=== PATIENT | female | born 1985 | race Caucasian/White ===

== ENCOUNTER 2017-07-21 17:54 | Emergency (ER) | payer MEDICAID, OTHER, SELFPAY ==
[~2017-07-21] VITALS: Ht 154.9 cm; Wt 47.4 kg
[2017-07-21] MEDS ORDERED: DIPH,PERTUSS(ACELL),TET VAC/PF 0.5 ML IM-VACC ONE ×2 (18:23→18:30)
[2017-07-21] MEDS ORDERED: LIDOCAINE 2%, 20ML SQ ONE (18:30)
[2017-07-21] MEDS ORDERED: LIDOCAINE-MPF 1%, 5ML ONE ×2 (18:30→19:09)
[2017-07-21 18:39] LABS: BASOPHILS # (AUTO) 0.07 x10^3/uL (0-0.1); BASOPHILS % (AUTO) 1 % (0-1); EOSINOPHILS # (AUTO) 0.25 x10^3/uL (0-0.4); EOSINOPHILS % (AUTO) 2 % (1-7); LYMPHOCYTES # (AUTO) 2.63 x10^3/uL (1-3.4); LYMPHOCYTES % (AUTO) 20 % (22-44); MD NO; MEAN CORPUSCULAR HEMOGLOBIN 30.8 pg (27.0-34.8); MEAN CORPUSCULAR HGB CONC 33.7 g/dL (32.4-35.8); MEAN CORPUSCULAR VOLUME 91.4 fL (80-100); MEAN PLATELET VOLUME 8.4 fL (7.4-10.4); MONOCYTES # (AUTO) 0.72 x10^3/uL (0.2-0.8); MONOCYTES % (AUTO) 5 % (2-9); NEUTROPHILS # (AUTO) 9.84 x10^3/uL (1.8-6.8); NEUTROPHILS % (AUTO) 73 % (42-75); PLATELET COUNT 303 x10^3/uL (130-400); RED BLOOD COUNT 4.45 x10^6/uL (3.82-5.3); RED CELL DISTRIBUTION WIDTH 12.1 % (9.6-15.2)
[2017-07-21 18:47] LABS: ALBUMIN 3.3 g/dL (3.4-5.0); ANION GAP 11 mmol/L (5-15); CALCIUM 8.6 mg/dL (8.5-10.1); CHLORIDE 110 mmol/L (98-107); CREATININE 0.74 mg/dL (0.55-1.02)
[2017-07-21] MEDS ORDERED: LORazepam 2 MG/ML, 1ML ONE (18:58)
[2017-07-21] MEDS ORDERED: LORazepam 2 MG/ML, 1ML IM ONE (19:00)
[2017-07-21 19:46] VITALS: BP 112/84
== END 2017-07-21 19:49 | disposition home or self-care (01) ==
LOC: ED 19:30
DX: L03.011 Cellulitis of right finger (principal)
CPT/HCPCS: 10060; 36415; 80048; 82040; 85025; 90471; 90715; 96372; 99284; J2060